=== PATIENT | female | born 1965 | race Caucasian/White ===

== ENCOUNTER 2017-07-14 13:45 | Emergency (ER) | payer MEDICAID ==
--- NOTE | 2017-07-14 14:32 | EDM.PDOC ---
ED HPI GENERAL MEDICAL PROBLEM - General Chief Complaint: Syncope Stated Complaint: SYNCOPE Time Seen by Provider: 07/14/17 13:50 Source of Information: Reports: Patient, RN Notes Reviewed - History of Present Illness INITIAL COMMENTS - FREE TEXT/NARRATIVE: The 20th female comes in with concerns about blood pressure but also had an episode of chest discomfort as well as some nonspecific dizziness. She does have long-standing history of hypertension. She had been on medication for that up until about a month ago. It appears she stopped due to having difficulty paying for the medication. She does have some history of drug usage. She states she had been clean for a very long period of time and then messed up and did use some Afrin and smoke some marijuana 4 days ago. She is quite stressed out over that and other various situational problems. She does not have known history of heart disease. She is not diabetic. No chest discomfort at this time. She did have her blood pressure checked prior to arrival and it was "extremely high" Face Pain Score (Numeric/FACES): 6 - Related Data Allergies Allergy/AdvReac Type Severity Reaction Status Date / Time No Known Allergies Allergy Verified 07/14/17 13:49 Home Meds: Home Meds Prazosin [Minpress] 1 mg PO BID #60 cap 07/14/17 [Rx] cloNIDine [Catapres] 0.1 mg PO Q12HR #60 tablet 07/14/17 [Rx] Past Medical History HEENT History: Reports: Impaired Vision Other HEENT History: states needs eyeglasses but cannot afford them. 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: Musculoskeletal History: Reports: Fracture Neurological History: Reports: Headaches, Chronic Psychiatric History: Reports: Addiction, Anxiety, Depression Hematologic History: Reports: Iron Deficiency - Infectious Disease History Infectious Disease History: Reports: Chicken Pox, Measles, Mumps, Shingles - Past Surgical History GI Surgical History: Reports: Appendectomy, Cholecystectomy Female Surgical History: Reports: Section Social & Family History - Tobacco Use Smoking Status *Q: Never Smoker Second Hand Smoke Exposure: No - Caffeine Use Caffeine Use: Reports: Coffee - Alcohol Use Days Per Week of Alcohol Use: 0 - Recreational Drug Use Recreational Drug Use: Yes Drug Use in Last 12 Months: Yes Recreational Drug Type: Reports: Marijuana/Hashish, Methamphetamine Recreational Drug Last Use: 20 days ago ED ROS GENERAL - Review of Systems Review Of Systems: See Below Constitutional: Denies: Fever, Chills, Diaphoresis HEENT: Reports: No Symptoms Respiratory: Denies: Shortness of Breath, Pleuritic Chest Pain Cardiovascular: Reports: Chest Pain (Mild anterior, gone), Lightheadedness GI/Abdominal: Denies: Abdominal Pain, Nausea, Vomiting Musculoskeletal: Denies: Neck Pain, Shoulder Pain, Arm Pain Skin: Reports: No Symptoms Neurological: Reports: Dizziness, Headache. Denies: Numbness (Mild yesterday and today), Tingling, Trouble Speaking, Difficulty Walking, Weakness, Change in Speech ED EXAM, GENERAL - Physical Exam Exam: See Below General Appearance: Alert, Anxious Eye Exam: Bilateral Eye: PERRL Throat/Mouth: Normal Inspection, Normal Oropharynx Neck: Supple, Full Range of Motion. No: Lymphadenopathy (L), Lymphadenopathy (R ) Respiratory/Chest: No Respiratory Distress, Lungs Clear, Normal Breath Sounds Cardiovascular: Regular Rate, Rhythm GI/Abdominal: Soft, Non-Tender Extremities: Normal Inspection, Normal Range of Motion. No: Leg Pain Neurological: Alert, Oriented, No Motor/Sensory Deficits, Other Skin Exam: Warm (Finger to nose testing normal), Dry, Normal Color EKG INTERPRETATION EKG Date: 07/14/17 [place]: Normal P-Wave: Present QRS: Normal ST-T: Normal Course - Vital Signs Last Recorded V/S: Last Vital Signs Temp 97.5 F 07/14/17 13:45 Pulse 94 07/14/17 15:30 Resp 20 07/14/17 15:30 BP 155/88 H 07/14/17 15:30 Pulse Ox 99 07/14/17 15:30 Orthostatic Blood Pressure [ 149/81 Standing] Orthostatic Blood Pressure [ 178/95 Sitting] Orthostatic Blood Pressure [ 166/128 Supine] - Orders/Labs/Meds Orders: Active Orders 24 hr Category Date Time Status EKG 12 Lead [EKG Documentation Completion] [RC] STAT Care 07/14/17 14:04 Active Labs: Laboratory Tests 07/14/17 07/14/17 Range/Units 14:25 14:25 WBC 6.05 (3.98-10.04) K/mm3 RBC 4.10 (3.98-5.22) M/mm3 Hgb 10.5 L (11.2-15.7) gm/L Hct 33.5 L (34.1-44.9) % MCV 81.7 (79.4-94.8) fl MCH 25.6 (25.6-32.2) pg MCHC 31.3 L (32.2-35.5) g/dl RDW Std Deviation 45.2 (36.4-46.3) fL Plt Count 317 (182-369) K/mm3 MPV 9.7 (9.4-12.3) fl Neut % (Auto) 49.4 (34.0-71.1) % Lymph % (Auto) 28.9 (19.3-51.7) % [place] % (Auto) 17.7 H (4.7-12.5) % Eos % (Auto) 3.5 (0.7-5.8) Baso % (Auto) 0.5 (0.1-1.2) % Neut # (Auto) 2.99 (1.56-6.13) K/mm3 Lymph # (Auto) 1.75 (1.18-3.74) K/mm3 [place] # (Auto) 1.07 H (0.24-0.36) K/mm3 Eos # (Auto) 0.21 (0.04-0.36) K/mm3 Baso # (Auto) 0.03 (0.01-0.08) K/mm3 Manual Slide Review Normal smear Sodium 141 (136-145) mEq/L Potassium 4.0 (3.5-5.1) mEq/L Chloride 106 (98-107) mEq/L Carbon Dioxide 28 (21-32) mEq/L Anion Gap 11.0 (5-15) BUN 21 H (7-18) mg/dL Creatinine 0.8 (0.55-1.02) mg/dL Est Cr Clr Drug Dosing 65.80 mL/min Estimated GFR (MDRD) > 60 (>60) mL/min BUN/Creatinine Ratio 26.3 H (14-18) Glucose 103 (74-106) mg/dL Calcium 9.0 (8.5-10.1) mg/dL Total Bilirubin 0.3 (0.2-1.0) mg/dL AST 18 (15-37) U/L ALT 26 (14-59) U/L Alkaline Phosphatase 70 (46-116) U/L Total Protein 6.9 (6.4-8.2) g/dl Albumin 3.2 L (3.4-5.0) g/dl Globulin 3.7 gm/dL Albumin/Globulin Ratio 0.9 L (1-2) Meds: Medications Discontinued Medications Generic Name Dose Route Start Last Admin Trade Name Santos PRN Reason Stop Dose Admin Clonidine HCl 0.1 mg 07/14/17 14:39 07/14/17 14:44 Catapres PO 07/14/17 14:40 0.1 mg ONETIME ONE Administration Departure - Departure Time of Disposition: 15:50 Disposition: Home, Self-Care 01 Condition: Fair Clinical Impression: Anxiety Hypertension Qualifiers: Hypertension type: essential hypertension Qualified Code(s): I10 - Essential ( primary) hypertension Prescriptions: cloNIDine [Catapres] 0.1 mg PO Q12HR #60 tablet Prazosin [Minpress] 1 mg PO BID #60 cap Referrals: Alice Verde NP [Primary Care Provider] - Forms: ED Department Discharge Additional Instructions: Start clonidine and prazosin as previously prescribed for hypertension, ativan 0.5 mg twice daily for 5 days. Low salt diet, exercise regularly, Follow up with Dr Gonzalez as planned. Return to ED as needed - My Orders Last 24 Hours: My Active Orders 07/14/17 14:04 EKG 12 Lead [EKG Documentation Completion] [RC] STAT - Assessment/Plan Last 24 Hours: My Active Orders 07/14/17 14:04 EKG 12 Lead [EKG Documentation Completion] [RC] STAT
[2017-07-14] MEDS ORDERED: cloNIDine 0.1 MG Tab PO ONE (14:39)
[2017-07-14 15:37] VITALS: BP 155/88
== END 2017-07-14 16:30 | disposition home or self-care (01) ==
LOC: JD.ED 13:45
DX: F41.9 Anxiety disorder, unspecified (principal); I10 Essential (primary) hypertension; Z87.440 Personal history of urinary (tract) infections; F32.9 Major depressive disorder, single episode, unspecified; Z90.49 Acquired absence of other specified parts of digestive tract
CPT/HCPCS: 36415; 80053; 85025; 93005; 99285; A9270; 99284

== ENCOUNTER 2017-12-29 22:34 | Emergency (ER) | payer MEDICAID ==
[2017-12-29 22:46] VITALS: BP 147/61
--- NOTE | 2017-12-29 22:50 | EDM.PDOC ---
ED HPI GENERAL MEDICAL PROBLEM - General Chief Complaint: Cardiovascular Problem Stated Complaint: 162/104 BLOOD PRESSURE CHEST PAIN Time Seen by Provider: 12/29/17 22:50 Source of Information: Reports: Patient History Limitations: Reports: No Limitations - History of Present Illness INITIAL COMMENTS - FREE TEXT/NARRATIVE: 52-year-old female presents the ED with central chest pain rating into the left precordial chest. Also into her left upper shoulder and arm at times. Pain has been coming and going but has been constant now for the last several hours. When checked at the nursing home where she resides her blood pressure is found to be elevated as well which precipitated even more anxiety. She did receive some Rolaids at the shelter but it did not help relieve the discomfort. Patient reports that she's gained over 22 pounds in the last 2 months. She's been on a couple of courses of prednisone due to degenerative disc disease in lower back with bilateral referred pain into the but talks. She remains on prednisone 10 mg once daily. She's also on Lasix 20 mg a day due to fluid retention in her lower extremities. Associated shortness of breath. No cough or sputum production. No fever or chills. She has a strong family history of coronary disease with 3 brothers previously affected with coronary disease. She is a nonsmoker she is currently in nursing home. She has been sober --meth free for 16 months. Onset: Today Onset Date: 12/29/17 Onset Time: 19:00 Duration: Hour(s): Location: Reports: Chest Quality: Reports: Ache (Central chest rating to the left shoulder and left precordial upper chest.), Pressure Severity: Moderate Improves with: Reports: None (Was as bad as 8 out of 10. Known stone to 1 or 2 out of 10.) Worsens with: Reports: None Context: Reports: Other (Came on spontaneously.). Denies: Activity, Exercise, Lifting, Sick Contact, Trauma Associated Symptoms: Reports: Chest Pain, Malaise, Shortness of Breath. 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 (see below) (Did try some Rolaids at the shelter with no relief.) Chest Pain Score (Numeric/FACES): 5 - Related Data Allergies Allergy/AdvReac Type Severity Reaction Status Date / Time No Known Allergies Allergy Verified 07/14/17 13:49 Home Meds: Home Meds Furosemide [Lasix] 20 mg PO DAILY 12/29/17 [History] Gabapentin [Neurontin] 300 mg PO BEDTIME 12/29/17 [History] Metoprolol Succinate 50 mg PO DAILY 12/29/17 [History] Prednisone [IJP: Prednisone] 10 mg PO DAILY 12/29/17 [History] Venlafaxine [Effexor] 75 mg PO DAILY 12/29/17 [History] busPIRone [Buspar] 10 mg PO BID 12/29/17 [History] hydrOXYzine HCl [hydrOXYzine] 100 mg PO BEDTIME 12/29/17 [History] Past Medical History HEENT History: Reports: Impaired Vision Other HEENT History: states needs eyeglasses but cannot afford them. 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: Musculoskeletal History: Reports: Fracture Neurological History: Reports: Headaches, Chronic Psychiatric History: Reports: Addiction, Anxiety, Depression Hematologic History: Reports: Iron Deficiency - Infectious Disease History Infectious Disease History: Reports: Chicken Pox, Measles, Mumps, Shingles - Past Surgical History GI Surgical History: Reports: Appendectomy, Cholecystectomy Female Surgical History: Reports: Section Social & Family History - Tobacco Use Smoking Status *Q: Never Smoker Second Hand Smoke Exposure: No - Caffeine Use Caffeine Use: Reports: Coffee - Alcohol Use Days Per Week of Alcohol Use: 0 - Recreational Drug Use Recreational Drug Use: Yes Drug Use in Last 12 Months: Yes Recreational Drug Type: Reports: Marijuana/Hashish, Methamphetamine Recreational Drug Last Use: 20 days ago - Living Situation & Occupation Living situation: Reports: Occupation: Employed ED ROS GENERAL - Review of Systems Review Of Systems: See Below Constitutional: Reports: Weakness, Fatigue, Weight Gain (Is gained about 22 pounds in the last 2 months.). Denies: Fever, Chills, Malaise, Decreased Appetite, Weight Loss HEENT: Reports: No Symptoms Respiratory: Reports: Shortness of Breath. Denies: Wheezing, Pleuritic Chest Pain, Cough, Sputum Cardiovascular: Reports: Chest Pain, Blood Pressure Problem (Central chest pain discomfort), Dyspnea on Exertion (Chronic edema worse in the left leg as compared to the right.), Edema. Denies: Claudication, Lightheadedness, Orthopnea ( has chronic hypertension is well-controlled with medications.), Palpitations Endocrine: Reports: Fatigue GI/Abdominal: Reports: Constipation (Mild positive constipation.). Denies: Abdominal Pain : Reports: Frequency Musculoskeletal: Reports: Back Pain (Chronic severe low back pain for the last several months. Recent MRI identified multilevel degenerative disc disease as well as degenerative arthritic changes. She is going to be scheduled to see neurosurgery regarding possible facet joint injections. This is the reason for current use of prednisone 10 mg daily), Other (Sciatica into both but talks and lower thighs.) Skin: Reports: No Symptoms Neurological: Reports: No Symptoms Psychiatric: Reports: No Symptoms Hematologic/Lymphatic: Reports: No Symptoms Immunologic: Reports: No Symptoms ED EXAM, GENERAL - Physical Exam Exam: See Below Exam Limited By: No Limitations General Appearance: Alert, WD/WN, No Apparent Distress, Other (Blood pressure is 140/98 at present.) Eye Exam: Bilateral Eye: Normal Inspection Throat/Mouth: Normal Inspection, Normal Lips, Normal Teeth, Normal Oropharynx Head: Atraumatic, Normocephalic Neck: Normal Inspection, Supple, Non-Tender, Full Range of Motion. No: Lymphadenopathy (L), Lymphadenopathy (R) Respiratory/Chest: No Respiratory Distress, Lungs Clear, Normal Breath Sounds, No Accessory Muscle Use, Other Cardiovascular: Normal Peripheral Pulses, Regular Rate, Rhythm, No Gallop, No Murmur, No Rub. No: No Edema Peripheral Pulses: 1+: Posterior Tibial (L), Posterior Tibial (R), Dorsalis Pedis (L), Dorsalis Pedis (R) GI/Abdominal: Other (The abdomen is moderately obese. Firm to palpation without organomegaly or masses noted it is not overly distended with air.) Back Exam: Normal Inspection, Full Range of Motion. No: CVA Tenderness (L), CVA Tenderness (R) Extremities: Normal Inspection, Normal Range of Motion, Non-Tender, Normal Capillary Refill, Pedal Edema (She has 3+ pitting edema on the left leg and 1+ pitting edema on the right leg.) Neurological: Alert, Oriented, CN II-XII Intact, Normal Cognition Psychiatric: Normal Affect, Normal Mood Skin Exam: Warm, Dry, Intact, Normal Color, No Rash EKG INTERPRETATION EKG Date: 12/29/17 Time: 22:50 Rhythm: NSR Rate (Beats/Min): 62 [place]: Normal P-Wave: Present QRS: Normal ST-T: Normal QT: Prolonged (Mildly prolonged.) EKG Interpretation Comments: Borderline ECG Course - Vital Signs Last Recorded V/S: Last Vital Signs Temp 36.4 C 12/29/17 22:44 Pulse 66 12/29/17 22:44 Resp 12 12/29/17 22:44 BP 147/61 H 12/29/17 22:44 Pulse Ox 99 12/29/17 22:44 - Orders/Labs/Meds Orders: Active Orders 24 hr Category Date Time Status EKG Documentation Completion [RC] ASDIRECTED Care 12/29/17 22:43 Active EKG Documentation Completion [RC] STAT Care 12/29/17 23:17 Inactive Chest 1V Frontal [CR] Stat Exams 12/29/17 23:17 Taken EKG 12 Lead [EK] Stat Ther 12/29/17 22:43 Ordered Labs: Laboratory Tests 12/29/17 12/29/17 12/29/17 Range/Units 23:36 23:36 23:36 WBC 6.19 (3.98-10.04) K/mm3 RBC 4.08 (3.98-5.22) M/mm3 Hgb 10.7 L (11.2-15.7) gm/L Hct 34.6 (34.1-44.9) % MCV 84.8 (79.4-94.8) fl MCH 26.2 (25.6-32.2) pg MCHC 30.9 L (32.2-35.5) g/dl RDW Std Deviation 45.9 (36.4-46.3) fL Plt Count 278 (182-369) K/mm3 MPV 10.3 (9.4-12.3) fl Neutrophils % (Manual) 56 (40-60) % Band Neutrophils % 1 (0-10) % Lymphocytes % (Manual) 36 (20-40) % Atypical Lymphs % 0 % Monocytes % (Manual) 5 (2-10) % Eosinophils % (Manual) 1 (0.7-5.8) % Basophils % (Manual) 1 (0.1-1.2) Platelet Estimate Adequate RBC Morph Comment Normal Sodium 141 (136-145) mEq/L Potassium 4.1 (3.5-5.1) mEq/L Chloride 106 (98-107) mEq/L Carbon Dioxide 29 (21-32) mEq/L Anion Gap 10.1 (5-15) BUN 18 (7-18) mg/dL Creatinine 0.8 (0.55-1.02) mg/dL Est Cr Clr Drug Dosing 65.06 mL/min Estimated GFR (MDRD) > 60 (>60) mL/min BUN/Creatinine Ratio 22.5 H (14-18) Glucose 115 H (74-106) mg/dL Calcium 8.6 (8.5-10.1) mg/dL Magnesium 1.8 (1.8-2.4) mg/dl Total Bilirubin 0.1 L (0.2-1.0) mg/dL AST 13 L (15-37) U/L ALT 23 (14-59) U/L Alkaline Phosphatase 77 (46-116) U/L CK-MB (CK-2) 1.0 (0-3.6) ng/ml Troponin I < 0.017 (0.00-0.056) ng/mL NT-Pro-B Natriuret Pep 53 (0-125) pg/mL Total Protein 6.5 (6.4-8.2) g/dl Albumin 3.0 L (3.4-5.0) g/dl Globulin 3.5 gm/dL Albumin/Globulin Ratio 0.9 L (1-2) TSH 3rd Generation 3.268 (0.358-3.74) uIU/mL Meds: Medications Discontinued Medications Generic Name Dose Route Start Last Admin Trade Name Freq PRN Reason Stop Dose Admin Aspirin 324 mg 12/29/17 23:17 12/29/17 23:40 Aspirin PO 12/29/17 23:18 324 mg ONETIME ONE Administration Al Hydroxide/Mg Hydroxide 30 0 ml 12/29/17 23:18 12/29/17 23:41 ml/ Lidocaine HCl 15 ml PO 12/29/17 23:19 45 ml ONETIME ONE Administration Dicyclomine HCl 20 mg 12/29/17 23:17 12/29/17 23:40 Bentyl PO 12/29/17 23:18 20 mg ONETIME ONE Administration Famotidine 20 mg 12/30/17 01:28 12/30/17 01:43 Pepcid PO 12/30/17 01:29 20 mg ONETIME ONE Administration - Radiology Interpretation Free Text/Narrative:: 52-year-old female presents the ED with retrosternal chest pressure discomfort that radiates into her left shoulder off and on for the last several hours. Started about 1800 hrs. today. No relief with burping or belching or Rolaids. She has no formal history of GERD but is moderately obese and is likely to have to GERD and/or hiatal hernia. She is a nonsmoker. She is currently in the shelter system. She has been 16th months free of methamphetamines. ECG shows sinus rhythm at 62/m. QT is moderately prolonged. Borderline ECG. - Re-Assessments/Exams Free Text/Narrative Re-Assessment/Exam: 12/30/17 00:57 chest x-ray reveals poor inspirational view. Cardiac silhouette is normal. I think due to the compression and portable technique and suggest mild diffuse vascular congestion. Labs are back. White count is 6.19 with 56% neutrophils and 1% bands. Hemoglobin is 10.7 with hematocrit of 34.7. Is normal 278,000. Sodium is 141 with a potassium of 4.1 chloride 106 with a bicarbonate of 29. Anion gap is 10.1 BUN is 18. Creatinine is 0.8. GFR is greater than 60. Glucose is 1:15 calcium 8.6. Magnesium normal 1.8. Liver function normal alk phosphatase 77 CK-MB fraction 1.0 troponin I is less than 0.017. BNP is 53. TSH is normal at 3.26 Departure - Departure Time of Disposition: 01:36 Disposition: Home, Self-Care 01 Condition: Fair Clinical Impression: Non-cardiac chest pain, Esophageal spasm Instructions: Esophageal Spasm, Nonspecific Chest Pain, [id number] Referrals: Alice Verde NP [Primary Care Provider] - Forms: ED Department Discharge Additional Instructions: Evaluation in the emergency him tonight in regards to elevated blood pressure and associated central chest pain rating up into the left chest and shoulder area. This started about 1800 hrs. and was quite persistent for a period of time. Somewhat better by the time you were seen in the ED. History of heart disease. History of hypertension. Chest x-ray revealed no abnormalities. Heart tracing showed normal sinus rhythm at 62/m with no signs of heart attack. Blood tests were done and they also proved to be normal other than mild anemia with a hemoglobin of 10.7. Normal is usually 13-14. There are cardiac markers were all negative for any signs of heart attack. Liver and kidney function were all normal as well. Thyroid function was checked and is normal as well. Also there was no evidence of significant fluid accumulation in the lungs themselves. The prednisone you're currently on may be an irritation to your food pipe and stomach and have caused esophageal spasm to cause the terrible chest pain that you experience. I would suggest being on Prilosec 20 mg once daily at bedtime while you are on this medication. Also I would suggest having some Maalox plus on hand to take 30 mils as needed for similar type pain. All other medicines could be continued as previously prescribed at this time. Lobe with personal care physician within the next 5-7 days. - My Orders Last 24 Hours: My Active Orders 12/29/17 22:43 EKG Documentation Completion [RC] ASDIRECTED EKG 12 Lead [EK] Stat 12/29/17 23:17 EKG Documentation Completion [RC] STAT Chest 1V Frontal [CR] Stat - Assessment/Plan Last 24 Hours: My Active Orders 12/29/17 22:43 EKG Documentation Completion [RC] ASDIRECTED EKG 12 Lead [EK] Stat 12/29/17 23:17 EKG Documentation Completion [RC] STAT Chest 1V Frontal [CR] Stat
[2017-12-29] MEDS ORDERED: Aspirin 81 MG Tab.Chew PO ONE (23:17)
[2017-12-29] MEDS ORDERED: Dicyclomine 10 MG Cap PO ONE (23:17)
[2017-12-29] MEDS ORDERED: Alum Hydrox/Mag Hydrox/Simeth 30 ML, Lidocaine 2% 15 ML PO ONE ×2 (23:18)
[2017-12-30] MEDS ORDERED: Famotidine 20 MG Tab PO ONE (01:28)
--- NOTE | 2017-12-30 07:37 | CR ---
Chest: Portable view of the chest was obtained. Comparison: Prior chest x-ray of 11/06/14. Heart size and mediastinum are within normal limits for the patient's age. Lungs are clear. Bony structures are grossly intact. Impression: 1. Nothing acute is identified on portable chest x-ray. Diagnostic code #1
== END 2017-12-30 01:57 | disposition home or self-care (01) ==
LOC: JD.ED 22:34
DX: K22.4 Dyskinesia of esophagus (principal); R07.89 Other chest pain; I10 Essential (primary) hypertension; F41.9 Anxiety disorder, unspecified; F32.9 Major depressive disorder, single episode, unspecified; Z79.899 Other long term (current) drug therapy
CPT/HCPCS: 36415; 71045; 80053; 82553; 83735; 83880; 84443; 84484; 85025; 93005; 99284; A9270; 93010

== ENCOUNTER 2018-02-07 21:29 | Emergency (ER) | payer SELFPAY ==
[2018-02-07 21:48] VITALS: BP 163/125
--- NOTE | 2018-02-07 23:15 | EDM.PDOC ---
ED HPI GENERAL MEDICAL PROBLEM - General Chief Complaint: Cardiovascular Problem Stated Complaint: HIGH BLOOD PRES/CLAIMY/HOT Time Seen by Provider: 02/07/18 22:46 Source of Information: Reports: Patient History Limitations: Reports: No Limitations - History of Present Illness INITIAL COMMENTS - FREE TEXT/NARRATIVE: The patient states that she is incarcerated at the [facility], but is allowed to leave on day . She states that she felt clammy, hot, dizzy, and anxious around 21:30, as she was returned to alf. Her blood pressure was checked and found to be elevated at 192/109 at the alf. She was instructed to come to the ED. Here in the ED, her blood pressure was initially 163/125, however, without treatment, it reduced to 136/65, and most recently is 126/77. The patient has a history of hypertension, currently on metoprolol and Lasix. The patient's PCP is Alice Verde. - Related Data Allergies Allergy/AdvReac Type Severity Reaction Status Date / Time No Known Allergies Allergy Verified 02/07/18 21:48 Home Meds: Home Meds Furosemide [Lasix] 40 mg PO DAILY 12/29/17 [History] Gabapentin [Neurontin] 300 mg PO BID 12/29/17 [History] Metoprolol Succinate 50 mg PO DAILY 12/29/17 [History] Prednisone [IJP: Prednisone] 10 mg PO DAILY 12/29/17 [History] busPIRone [Buspar] 10 mg PO BID 12/29/17 [History] hydrOXYzine HCl [hydrOXYzine] 100 mg PO BEDTIME 12/29/17 [History] Past Medical History HEENT History: Reports: Impaired Vision Other HEENT History: states needs eyeglasses but cannot afford them. Cardiovascular History: Reports: Hypertension Respiratory History: Reports: Sleep Apnea BUNDLER History: Reports: Musculoskeletal History: Reports: Arthritis, Fracture, Other (See Below) (DDD) Neurological History: Reports: Neuropathy, Peripheral Psychiatric History: Reports: Addiction, Anxiety, Depression Endocrine/Metabolic History: Reports: Obesity/BMI 30+ Hematologic History: Reports: Iron Deficiency - Infectious Disease History Infectious Disease History: Reports: Chicken Pox, Measles, Mumps, Shingles - Past Surgical History GI Surgical History: Reports: Appendectomy, Cholecystectomy Female Surgical History: Reports: Section (x 3) Social & Family History - Tobacco Use Smoking Status *Q: Never Smoker Second Hand Smoke Exposure: No - Caffeine Use Caffeine Use: Reports: Coffee - Alcohol Use Alcohol Use History: No Days Per Week of Alcohol Use: 0 - Recreational Drug Use Recreational Drug Use: Yes Drug Use in Last 12 Months: No Recreational Drug Type: 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 ED EXAM, GENERAL - Physical Exam Exam: See Below Exam Limited By: No Limitations General Appearance: Alert, WD/WN, No Apparent Distress Eye Exam: Bilateral Eye: Normal Inspection Ears: Normal External Exam, Hearing Grossly Normal Nose: Normal Inspection, No Blood Throat/Mouth: Normal Inspection, Normal Lips, Normal Voice, No Airway Compromise Head: Atraumatic, Normocephalic Neck: Normal Inspection, Full Range of Motion Respiratory/Chest: No Respiratory Distress, Lungs Clear, Normal Breath Sounds, No Accessory Muscle Use Cardiovascular: Normal Peripheral Pulses, Regular Rate, Rhythm, No Edema, No Gallop, No JVD, No Murmur, No Rub Peripheral Pulses: 4+: Radial (L), Radial (R) GI/Abdominal: Normal Bowel Sounds, Soft, Non-Tender, No Organomegaly, No Distention, No Abnormal Bruit, No Mass (Female) Exam: Deferred Rectal (Female) Exam: Deferred Back Exam: Normal Inspection, Full Range of Motion, NT Extremities: Normal Inspection, Normal Range of Motion, No Pedal Edema, Normal Capillary Refill Neurological: Alert, Oriented, Normal Cognition, No Motor/Sensory Deficits Psychiatric: Normal Affect Skin Exam: Warm, Dry, Intact, Normal Color, No Rash Course - Vital Signs Last Recorded V/S: Last Vital Signs Temp 36.4 C 02/07/18 21:41 Pulse 72 02/07/18 21:41 Resp BP 163/125 H 02/07/18 21:41 Pulse Ox 98 02/07/18 21:41 - Re-Assessments/Exams Free Text/Narrative Re-Assessment/Exam: 02/07/18 23:10 The patient states that her blood pressure, when she returned to alf tonight, and while feeling clammy, hot, dizzy, and anxious, was 192/109. She was sent here for evaluation. Without treatment, her blood pressure is down to 126/77. Either the patient does not have hypertension, or her hypertension is well managed, and further treatment tonight is not required. Departure - Departure Time of Disposition: 23:12 Disposition: Home, Self-Care 01 Condition: Good Clinical Impression: Elevated blood pressure reading Referrals: Alice Verde NP [Primary Care Provider] - Forms: ED Department Discharge Additional Instructions: You were seen in the emergency room after having an elevated blood pressure reading earlier tonight. Without treatment, your blood pressure dropped to 126/77, indicating that you either do not have hypertension, or that her hypertension is adequately treated. Going forward, current guidelines recommend that your blood pressure be checked 2-3 times a week, preferably at various times of the day, and only under restful conditions = you are sitting quietly for at least 5, and preferably 15 minutes, you are not sick, you are not anxious, and you are not in pain. If any of those conditions are present, elevated blood pressure measurements are not meaningful. We recommend that you continue to take your current medications, as prescribed. If any other problems, please do not hesitate to return to the ER.
== END 2018-02-07 23:18 | disposition home or self-care (01) ==
LOC: JD.ED 21:29
DX: I10 Essential (primary) hypertension (principal); E66.9 Obesity, unspecified; F41.9 Anxiety disorder, unspecified; F32.9 Major depressive disorder, single episode, unspecified; Z90.49 Acquired absence of other specified parts of digestive tract; Z68.36 Body mass index [BMI] 36.0-36.9, adult
CPT/HCPCS: 99283

== ENCOUNTER 2018-03-31 14:48 | Emergency (ER) | payer SELFPAY ==
[2018-03-31 14:58] VITALS: BP 151/80
[2018-03-31] MEDS ORDERED: Sodium Chloride 0.9% 10 ML Syringe FLUSH PRN (15:24)
--- NOTE | 2018-03-31 15:26 | EDM.PDOC ---
ED HPI GENERAL MEDICAL PROBLEM - General Chief Complaint: Respiratory Problem Stated Complaint: SOB, DIZZY Time Seen by Provider: 03/31/18 15:03 Source of Information: Reports: Patient, Old Records History Limitations: Reports: No Limitations - History of Present Illness INITIAL COMMENTS - FREE TEXT/NARRATIVE: 52-year-old female presents for evaluation and treatment of shortness of breath and chest tightness. Patient reports this occurred prior to arrival in the ER. She reports at the time the chest discomfort started she was watching TV. Reports that it came on suddenly. She reports a band light discomfort and tightness around her chest below her breasts. She reports associated symptoms of dizziness and lightheadedness. She states that she went to her cell and her cellmate said that she looked pale. She is also complaining of a dry mouth and headache. Patient reports that she's been ill for the last 2 days states that she is been feeling "sluggish". No fevers, chills, cough, ear pain or any sore throat. No urinary symptoms including no dysuria. Patient also complains of hematuria but states she just mentioned finished her menstrual cycle. Patient reports she has chronic swelling in her left leg. She states is due to a herniated disc. She states that she has gained 40 pounds in the last 3 months due to water retention. She is currently on Lasix 80 mg daily. Patient denies any cardiac history herself. She is not a diabetic. Reports family history of both diabetes and MIs at a younger age. Patient does not have clotting disorders that she is aware of. States she's never had anything like this before. [facility] She has been there for the not last 9 months and states she is about 2 weeks left shoulder symptoms. Primary care provider is Haritha Verde. Middle Chest Pain Score (Numeric/FACES): 6 - Related Data Allergies Allergy/AdvReac Type Severity Reaction Status Date / Time No Known Allergies Allergy Verified 03/31/18 14:57 Home Meds: Home Meds Furosemide [Lasix] 80 mg PO DAILY 12/29/17 [History] Gabapentin [Neurontin] 300 mg PO TID 12/29/17 [History] busPIRone [Buspar] 10 mg PO BID 12/29/17 [History] hydrOXYzine HCl [hydrOXYzine] 100 mg PO BEDTIME 12/29/17 [History] Levothyroxine [Synthroid] 50 mcg PO DAILY 03/31/18 [History] Venlafaxine [Effexor] 75 mg PO DAILY 03/31/18 [History] cloNIDine [Catapres] 0.1 mg PO BID 03/31/18 [History] Past Medical History HEENT History: Reports: Impaired Vision Other HEENT History: states needs eyeglasses but cannot afford them. Cardiovascular History: Reports: Hypertension Respiratory History: Reports: Sleep Apnea Gastrointestinal History: Reports: Chronic Constipation Genitourinary History: Reports: UTI, Recurrent ST[employer] History: Reports: Musculoskeletal History: Reports: Arthritis, Fracture, Other (See Below) (DDD) Neurological History: Reports: Neuropathy, Peripheral Psychiatric History: Reports: Addiction, Anxiety, Depression Endocrine/Metabolic History: Reports: Obesity/BMI 30+ Hematologic History: Reports: Iron Deficiency - Infectious Disease History Infectious Disease History: Reports: Chicken Pox, Measles, Mumps, Shingles - Past Surgical History GI Surgical History: Reports: Appendectomy, Cholecystectomy Female Surgical History: Reports: Section (x 3) Social & Family History - Tobacco Use Smoking Status *Q: Never Smoker - Caffeine Use Caffeine Use: Reports: Coffee - Recreational Drug Use Recreational Drug Use: Yes - Living Situation & Occupation Living situation: Reports: , Other ([employer] long-term) Occupation: Employed ED ROS GENERAL - Review of Systems Review Of Systems: See Below Constitutional: Reports: Malaise, Weight Gain (reports 40 lbs over the last 3 months). Denies: Fever, Chills HEENT: Denies: Ear Pain Respiratory: Reports: Shortness of Breath. Denies: Cough Cardiovascular: Reports: Chest Pain, Lightheadedness GI/Abdominal: Reports: Abdominal Pain : Denies: Dysuria Skin: Reports: Pallor Neurological: Reports: Headache. Denies: Syncope ED EXAM, GENERAL - Physical Exam Exam: See Below Exam Limited By: No Limitations General Appearance: Alert, WD/WN, No Apparent Distress, Obese Nose: Normal Inspection Throat/Mouth: Normal Inspection, Normal Voice, No Airway Compromise Neck: Normal Inspection Respiratory/Chest: No Respiratory Distress, Lungs Clear, Normal Breath Sounds Cardiovascular: Normal Peripheral Pulses, Regular Rate, Rhythm, No Murmur GI/Abdominal: Normal Bowel Sounds, Soft, Non-Tender Neurological: Alert, Oriented, Normal Cognition Psychiatric: Normal Affect, Normal Mood Skin Exam: Warm, Dry, Normal Color EKG INTERPRETATION EKG Date: 03/31/18 Time: 15:30 Rhythm: NSR Rate (Beats/Min): 61 [place]: Normal P-Wave: Present QRS: Normal ST-T: Normal QT: Normal EKG Interpretation Comments: NSRa t 61 bpm. No acute ischemic changes. No LAD. No LVH. No IVCDs. QTc within normal limits. No significan change from -04-12 EKG. Reviewed by myself and Dr. Rivers. Course - Vital Signs Last Recorded V/S: Last Vital Signs Temp 97.9 F 03/31/18 14:54 Pulse 67 03/31/18 14:54 Resp 22 H 03/31/18 14:54 BP 151/80 H 03/31/18 14:54 Pulse Ox 97 03/31/18 14:54 - Orders/Labs/Meds Labs: Laboratory Tests 03/31/18 03/31/18 03/31/18 Range/Units 15:01 15:01 15:01 WBC 8.15 (3.98-10.04) K/mm3 RBC 4.29 (3.98-5.22) M/mm3 Hgb 11.2 (11.2-15.7) gm/L Hct 36.0 (34.1-44.9) % MCV 83.9 (79.4-94.8) fl MCH 26.1 (25.6-32.2) pg MCHC 31.1 L (32.2-35.5) g/dl RDW Std Deviation 50.3 H (36.4-46.3) fL Plt Count 286 (182-369) K/mm3 MPV 11.0 (9.4-12.3) fl Neut % (Auto) 57.1 (34.0-71.1) % Lymph % (Auto) 27.4 (19.3-51.7) % Summers % (Auto) 12.5 (4.7-12.5) % Eos % (Auto) 2.5 (0.7-5.8) Baso % (Auto) 0.4 (0.1-1.2) % Neut # (Auto) 4.66 (1.56-6.13) K/mm3 Lymph # (Auto) 2.23 (1.18-3.74) K/mm3 Summers # (Auto) 1.02 H (0.24-0.36) K/mm3 Eos # (Auto) 0.20 (0.04-0.36) K/mm3 Baso # (Auto) 0.03 (0.01-0.08) K/mm3 PT 10.0 (9.5-12.1) SECONDS INR 0.92 D-Dimer, Quantitative (0.19-0.50) mg/L Sodium 141 (136-145) mEq/L Potassium 3.9 (3.5-5.1) mEq/L Chloride 105 (98-107) mEq/L Carbon Dioxide 27 (21-32) mEq/L Anion Gap 12.9 (5-15) BUN 22 H (7-18) mg/dL Creatinine 1.0 (0.55-1.02) mg/dL Est Cr Clr Drug Dosing 54.44 mL/min Estimated GFR (MDRD) 58 (>60) mL/min BUN/Creatinine Ratio 22.0 H (14-18) Glucose 114 H (74-106) mg/dL Calcium 8.7 (8.5-10.1) mg/dL Total Bilirubin 0.2 (0.2-1.0) mg/dL AST 20 (15-37) U/L ALT 35 (14-59) U/L Alkaline Phosphatase 75 (46-116) U/L Troponin I < 0.017 (0.00-0.056) ng/mL C-Reactive Protein (<1.0) mg/dL NT-Pro-B Natriuret Pep (0-125) pg/mL Total Protein 6.9 (6.4-8.2) g/dl Albumin 3.2 L (3.4-5.0) g/dl Globulin 3.7 gm/dL Albumin/Globulin Ratio 0.9 L (1-2) Lipase 161 (73-393) U/L 03/31/18 03/31/18 03/31/18 Range/Units 15:01 15:01 15:24 WBC (3.98-10.04) K/mm3 RBC (3.98-5.22) M/mm3 Hgb (11.2-15.7) gm/L Hct (34.1-44.9) % MCV (79.4-94.8) fl MCH (25.6-32.2) pg MCHC (32.2-35.5) g/dl RDW Std Deviation (36.4-46.3) fL Plt Count (182-369) K/mm3 MPV (9.4-12.3) fl Neut % (Auto) (34.0-71.1) % Lymph % (Auto) (19.3-51.7) % Summers % (Auto) (4.7-12.5) % Eos % (Auto) (0.7-5.8) Baso % (Auto) (0.1-1.2) % Neut # (Auto) (1.56-6.13) K/mm3 Lymph # (Auto) (1.18-3.74) K/mm3 Summers # (Auto) (0.24-0.36) K/mm3 Eos # (Auto) (0.04-0.36) K/mm3 Baso # (Auto) (0.01-0.08) K/mm3 PT (9.5-12.1) SECONDS INR D-Dimer, Quantitative 0.58 H (0.19-0.50) mg/L Sodium (136-145) mEq/L Potassium (3.5-5.1) mEq/L Chloride (98-107) mEq/L Carbon Dioxide (21-32) mEq/L Anion Gap (5-15) BUN (7-18) mg/dL Creatinine (0.55-1.02) mg/dL Est Cr Clr Drug Dosing mL/min Estimated GFR (MDRD) (>60) mL/min BUN/Creatinine Ratio (14-18) Glucose (74-106) mg/dL Calcium (8.5-10.1) mg/dL Total Bilirubin (0.2-1.0) mg/dL AST (15-37) U/L ALT (14-59) U/L Alkaline Phosphatase (46-116) U/L Troponin I (0.00-0.056) ng/mL C-Reactive Protein 0.8 (<1.0) mg/dL NT-Pro-B Natriuret Pep 108 (0-125) pg/mL Total Protein (6.4-8.2) g/dl Albumin (3.4-5.0) g/dl Globulin gm/dL Albumin/Globulin Ratio (1-2) Lipase (73-393) U/L 03/31/18 Range/Units 18:08 WBC (3.98-10.04) K/mm3 RBC (3.98-5.22) M/mm3 Hgb (11.2-15.7) gm/L Hct (34.1-44.9) % MCV (79.4-94.8) fl MCH (25.6-32.2) pg MCHC (32.2-35.5) g/dl RDW Std Deviation (36.4-46.3) fL Plt Count (182-369) K/mm3 MPV (9.4-12.3) fl Neut % (Auto) (34.0-71.1) % Lymph % (Auto) (19.3-51.7) % Summers % (Auto) (4.7-12.5) % Eos % (Auto) (0.7-5.8) Baso % (Auto) (0.1-1.2) % Neut # (Auto) (1.56-6.13) K/mm3 Lymph # (Auto) (1.18-3.74) K/mm3 Summers # (Auto) (0.24-0.36) K/mm3 Eos # (Auto) (0.04-0.36) K/mm3 Baso # (Auto) (0.01-0.08) K/mm3 PT (9.5-12.1) SECONDS INR D-Dimer, Quantitative (0.19-0.50) mg/L Sodium (136-145) mEq/L Potassium (3.5-5.1) mEq/L Chloride (98-107) mEq/L Carbon Dioxide (21-32) mEq/L Anion Gap (5-15) BUN (7-18) mg/dL Creatinine (0.55-1.02) mg/dL Est Cr Clr Drug Dosing mL/min Estimated GFR (MDRD) (>60) mL/min BUN/Creatinine Ratio (14-18) Glucose (74-106) mg/dL Calcium (8.5-10.1) mg/dL Total Bilirubin (0.2-1.0) mg/dL AST (15-37) U/L ALT (14-59) U/L Alkaline Phosphatase (46-116) U/L Troponin I < 0.017 (0.00-0.056) ng/mL C-Reactive Protein (<1.0) mg/dL NT-Pro-B Natriuret Pep (0-125) pg/mL Total Protein (6.4-8.2) g/dl Albumin (3.4-5.0) g/dl Globulin gm/dL Albumin/Globulin Ratio (1-2) Lipase (73-393) U/L Meds: Medications Discontinued Medications Generic Name Dose Route Start Last Admin Trade Name Freq PRN Reason Stop Dose Admin Sodium Chloride 100 mls @ 60 mls/hr 03/31/18 16:45 03/31/18 16:53 Normal Saline IV 60 mls/hr ASDIRECTED AKASH Administration Iopamidol 100 ml 03/31/18 16:37 03/31/18 16:53 Isovue-370 (76%) IVPUSH 03/31/18 16:38 100 ml ONETIME ONE Administration Sodium Chloride 10 ml 03/31/18 15:24 03/31/18 16:53 Saline Flush FLUSH 10 ml ASDIRECTED PRN Administration Keep Vein Open Sodium Chloride 10 ml 03/31/18 16:37 03/31/18 16:38 Saline Flush FLUSH 03/31/18 16:38 10 ml ONETIME ONE Administration - Radiology Interpretation Free Text/Narrative:: chest xray one view reviewed by myself and Dr. Rivers. Questionable medialstinal widening. Likely from portable technique. CT chest Technique: Multiple axial sections through the chest were obtained. Intravenous contrast was utilized. Study has been performed as a pulmonary angiogram protocol. Findings: Pulmonary arteries are not optimally opacified but felt not to significantly hamper evaluation for pulmonary emboli. No filling defects are seen to indicate pulmonary embolism. Mediastinum and hilar regions show no adenopathy or mass. No pericardial thickening is seen. Small portion of the visualized upper abdominal structures appear within normal limits. There is evidence of prior cholecystectomy. Lungs are clear with no acute parenchymal densities. No pleural effusions are seen. Slight degenerative spurring is noted within the spine. Impression: 1. No filling defects seen to indicate pulmonary embolism. 2. Other portions of the CT study of the chest also appear within normal limits. - Re-Assessments/Exams Free Text/Narrative Re-Assessment/Exam: 03/31/18 16:34 Reviewed the labs, EKG and imaging with the patient. Her d-dimer is slightly elevated. Questionable mediastinal widening on portable chest x-ray appears not to be present on previous chest x-ray. We'll obtain a CT pulmonary angiogram to rule out PE. 03/31/18 19:56 Repeat troponin returned negative. I reviewed this with the patient. Will discharge home at this time. Discharge instructions as documented. Departure - Departure Time of Disposition: 19:56 Disposition: Home, Self-Care 01 Condition: Fair Clinical Impression: Elevated blood pressure reading, Atypical chest pain - Discharge Information Instructions: Nonspecific Chest Pain, [id number] Referrals: Alice Verde NP [Primary Care Provider] - Forms: ED Department Discharge Additional Instructions: Continue with your current plan of care. Recommend wearing compression stockings to help with swelling in her lower legs. Also recommend maintaining a low-sodium diet. Follow-up with your primary care provider soon as you able to. Please return to ER if your symptoms change or worsen.
[2018-03-31] MEDS ORDERED: Iopamidol 755 Mg/ML 100 ML Bottle IVPUSH ONE (16:37)
[2018-03-31] MEDS ORDERED: Sodium Chloride 0.9% 10 ML Syringe FLUSH ONE (16:37)
[2018-03-31] MEDS ORDERED: Sodium Chloride 0.9% 100 ML IV SCH (16:45)
--- NOTE | 2018-03-31 17:17 | CT ---
CT chest Technique: Multiple axial sections through the chest were obtained. Intravenous contrast was utilized. Study has been performed as a pulmonary angiogram protocol. Findings: Pulmonary arteries are not optimally opacified but felt not to significantly hamper evaluation for pulmonary emboli. No filling defects are seen to indicate pulmonary embolism. Mediastinum and hilar regions show no adenopathy or mass. No pericardial thickening is seen. Small portion of the visualized upper abdominal structures appear within normal limits. There is evidence of prior cholecystectomy. Lungs are clear with no acute parenchymal densities. No pleural effusions are seen. Slight degenerative spurring is noted within the spine. Impression: 1. No filling defects seen to indicate pulmonary embolism. 2. Other portions of the CT study of the chest also appear within normal limits. Diagnostic code #2
--- NOTE | 2018-04-01 07:04 | CR ---
Chest: Portable view of the chest was obtained. Comparison: Prior chest x-ray of 12/29/17. Heart size and mediastinum are normal. Lungs are clear. Bony structures are grossly intact. Impression: 1. Nothing acute is seen on portable chest x-ray. Diagnostic code #1
== END 2018-03-31 20:00 | disposition home or self-care (01) ==
LOC: JD.ED 14:48
DX: R07.89 Other chest pain (principal); I10 Essential (primary) hypertension; E66.9 Obesity, unspecified; Z79.899 Other long term (current) drug therapy
CPT/HCPCS: 36415; 71045; 71275; 80053; 83690; 83880; 84484; 85025; 85379; 85610; 86140; 93005; 99285; J7030; J7050; Q9967; 99283